=== PATIENT | male | born 1995 | race Caucasian/White ===

== ENCOUNTER 2017-06-23 08:55 | Emergency (ER) | payer BC ==
[~2017-06-23] VITALS: Ht 177.8 cm; Wt 101.0 kg
[2017-06-23 10:02] LABS: HEMATOCRIT 51.9 % (38.0-50.0); MCHC 33.5 G/DL (30.0-36.0); MCV 86.4 FL (86-99); MEAN PLAT.VOLUME 9.4 uM^3 (9.0-12.4); PLATELET COUNT 222 K/uL (156-360); RBC DIS.WIDTH-CV 12.1 % (11.8-14.6); RBC DIS.WIDTH-SD 38.2 % (39-53); RED BLOOD COUNT 6.01 M/uL (4.00-5.50)
[2017-06-23 10:12] LABS: CHLORIDE 105 mEq/L (99-109)
[2017-06-23 10:13] LABS: SODIUM 140 mEq/L (136-147)
[2017-06-23 10:14] LABS: GLUCOSE 93 mg/dL (70-99)
[2017-06-23 10:16] LABS: ANION GAP 10 MEQ/L (2-14)
[2017-06-23 10:18] LABS: GFR ESTIMATE (CALCULATED) > 59 mL/min/
[2017-06-23 10:19] LABS: UREA NITROGEN (BUN) 11 mg/dL (9-23)
[2017-06-23 11:27] LABS: ADD MIUA? YES; BILIRUBIN NEGATIVE; BLOOD LARGE; COLOR YELLOW ((YELLOW)); GLUCOSE (STRIP) NEGATIVE; KETONES NEGATIVE; LEUKOCYTES NEGATIVE; NITRITE NEGATIVE; PROTEIN (STRIP) NEGATIVE; SPECIFIC GRAVITY 1.009 (1.000-1.030); UROBILINOGEN 0.2 MG/DL (0.2-1.0)
[2017-06-23 11:31] LABS: BACTERIA RARE /HPF; EPITHELIAL CELLS NONE SEEN /HPF; MUCUS 2+ /LPF; UCUL ADDED? NO; WHITE BLOOD CELLS 0-5 /HPF (0-5)
[2017-06-23] MEDS ORDERED: ZOFRAN4 MG PO (13:37)
[2017-06-23] MEDS ORDERED: FLOMAX0.4 MG PO (13:37)
[2017-06-23] MEDS ORDERED: PERCOCET 5/31 TABLET PO (13:37)
[2017-06-23 13:52] VITALS: BP 131/67
== END 2017-06-23 13:56 | disposition home or self-care (01) ==
LOC: EME 08:55
DX: N20.2 Calculus of kidney with calculus of ureter (principal); Z87.442 Personal history of urinary calculi; Z87.891 Personal history of nicotine dependence
CPT/HCPCS: 74176; 80048; 81003; 85027; 99281; 99285; J2270; J7030